=== PATIENT | male | born 1975 | race American Indian/Alaskan Native ===

== ENCOUNTER 2018-04-07 12:51 | Emergency (ER) | payer OTHER, SELFPAY ==
[2018-04-07 12:52] VITALS: BMI 19.3
[2018-04-07 13:03] VITALS: BP 136/89; PULSE 93; RESP 16; TEMP 98.5; O2SAT 99
[2018-04-07] MEDS ORDERED: Povidone Iodine Topical 10% Sol ONE (13:29)
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
== END 2018-04-07 13:50 | disposition home or self-care (01) ==
LOC: H.ER 12:51
DX: S31.811A Laceration without foreign body of right buttock, initial encounter (principal); S09.90XA Unspecified injury of head, initial encounter; X99.0XXA Assault by sharp glass, initial encounter